=== PATIENT | female | born 1940 | race Caucasian/White ===

== ENCOUNTER → 2017-02-04 | Outpatient (CLI) | payer MEDICARE, OTHER ==
--- NOTE | 2017-02-04 12:52 | REPMRS ---
Patient History The patient states she had a clinical breast exam in Patient is postmenopausal. No known family history of cancer. Took estrogen for 3 years. Digital Woman Screen Mammo: February 04, 2017 - Exam #: [id number] Bilateral CC and MLO view(s) were taken. Technologist: Flor Cortez, Technologist Prior study comparison: January 31, 2011, bilateral bilat screen digital mammo performed at [facility]. FINDINGS: There are scattered fibroglandular densities. The patient states that there are no palpable abnormalities or other breast complaints. There has been no change in the appearance of the mammogram from the prior studies. There is moderately dense fibroglandular tissue which is fairly symmetric. There is no interval development of dominant mass, areas of architectural distortion, or clustered microcalcification typical of malignancy. No significant changes when compared with prior studies. ASSESSMENT: BI-RADS/ACR category 1 mammogram. Negative. Recommendation Routine screening mammogram in 1 year (for women over age 40). This mammogram was interpreted with the aid of an FDA-approved computer-aided dectection system. A. Negative x-ray reports should not delay biopsy if a dominant or clinically suspicious mass is present. B. Not all cancers are identified by mammography. C. Adenosis and dense breast may obscure an underlying neoplasm. Electronically Signed By: Sky Decker M.D. 02/04/17 [id number]
--- NOTE | 2017-02-06 09:29 | DEXA ---
AP SPINE L1 - L4 1.199 0.0 1.9 LT FEMUR TOTAL 0.847 -1.3 0.7 RT FEMUR TOTAL 0.853 -1.2 0.7 TOTAL BODY TOTAL OTHER % COMMENTS: Normal bone densitometry of the spine. There is low bone density of the hips. The density of the spine has decreased 2.4% since the initial exam on 04/2002. The spine density has increased 0.6% since the most recent exam on 02/2015. The density of the left hip has decreased 7.6% since the initial exam on 2001. The density of the left hip has increased 2.2% since the most recent exam on 2014. The density of the right hip has decreased 8.4% since the initial exam on 2001. The density of the right hip has decreased 1.2% since the most recent exam on . FOLLOW-UP: Recommendation for the next bone density exam: 2 years. ELISE
== END ==
LOC: M WHC 10:36
PROVIDERS: ATTEND Nurse Practitioner Women's Health
DX: Z01.419 Encounter for gynecological examination (general) (routine) without abnormal findings (principal); Z12.31 Encounter for screening mammogram for malignant neoplasm of breast; M81.0 Age-related osteoporosis without current pathological fracture; Z78.0 Asymptomatic menopausal state; Z12.12 Encounter for screening for malignant neoplasm of rectum; Z92.23 Personal history of estrogen therapy
CPT/HCPCS: 77080; 82270; G0101; G0202

== ENCOUNTER 2017-05-07 06:02 | Day surgery (SDC) | payer MEDICARE, OTHER ==
[2017-05-07] MEDS: PROPARACAINE 0.5% OPHTH SOL 15ML OS (06:40)
[2017-05-07] MEDS: OFLOXACIN 0.3 % (OCUFLOX) OPTH SOL 5ML OS (06:41)
[2017-05-07] MEDS: PHENYLEPHRINE 2.5% OPHTH SOL 2ML OS (06:41)
[2017-05-07] MEDS: TROPICAMIDE 1% OPHTH SOLN 2ML OS (06:41)
[2017-05-07] MEDS ORDERED: MIDAZOLAM INJ 2 MG/2 ML VIAL (J2250) As Ordered (07:00)
[2017-05-07] MEDS: POVIDONE-IODINE 5% OPHTH PREP SOL 30ML As Ordered (07:33)
[2017-05-07] MEDS: BALANCED SALT IRRIGATION SOLUTION 500ML BAG (FOR OR EYE MACHINE) As Ordered (07:40)
[2017-05-07] MEDS: DUOVISC (0.50ML VISCOAT/0.55ML PROVISC) OPHTH KIT As Ordered (07:41)
[2017-05-07] MEDS: ACETYLCHOLINE OPHTH SOLN 1% 2ML (MIOCHOL-E) As Ordered (07:41)
[2017-05-07] MEDS: CEFUROXIME 1MG/0.1ML INTRACAMERAL INJ As Ordered (07:41)
[2017-05-07] MEDS: LIDOCAINE 0.75%/EPINEPHRINE 0.025% IN BSS 1ML SYR INTRACAMERAL (OR ONLY) As Ordered (07:41)
[2017-05-07] MEDS: PROPARACAINE 0.5% OPHTH SOL 15ML As Ordered (07:42)
== END 2017-05-07 08:45 | disposition home or self-care (01) ==
LOC: M SDC 06:02
DX: H25.12 Age-related nuclear cataract, left eye (principal); H52.222 Regular astigmatism, left eye; M19.90 Unspecified osteoarthritis, unspecified site; M81.0 Age-related osteoporosis without current pathological fracture; Z91.048 Other nonmedicinal substance allergy status; Z88.6 Allergy status to analgesic agent; Z79.899 Other long term (current) drug therapy
CPT/HCPCS: 66984

== ENCOUNTER 2017-05-28 06:15 | Day surgery (SDC) | payer MEDICARE, OTHER ==
[2017-05-28] MEDS: BALANCED SALT IRRIGATION SOLUTION 500ML BAG (FOR OR EYE MACHINE) As Ordered (06:37)
[2017-05-28] MEDS: OFLOXACIN 0.3 % (OCUFLOX) OPTH SOL 5ML OD (06:44)
[2017-05-28] MEDS: PHENYLEPHRINE 2.5% OPHTH SOL 2ML OD (06:44)
[2017-05-28] MEDS: PROPARACAINE 0.5% OPHTH SOL 15ML OD ×2 (06:44→07:35)
[2017-05-28] MEDS: TROPICAMIDE 1% OPHTH SOLN 2ML OD (06:44)
[2017-05-28] MEDS ORDERED: TROPICAMIDE 1% OPHTH SOLN 2ML OD (07:00)
[2017-05-28] MEDS ORDERED: PHENYLEPHRINE 2.5% OPHTH SOL 2ML OD (07:00)
[2017-05-28] MEDS ORDERED: OFLOXACIN 0.3 % (OCUFLOX) OPTH SOL 5ML OD (07:00)
[2017-05-28] MEDS ORDERED: MIDAZOLAM INJ 2 MG/2 ML VIAL (J2250) As Ordered (07:09)
[2017-05-28] MEDS ORDERED: fentaNYL 100 MCG/2 ML INJECTION (J3010) As Ordered (07:09)
[2017-05-28] MEDS: DUOVISC (0.50ML VISCOAT/0.55ML PROVISC) OPHTH KIT As Ordered (07:35)
[2017-05-28] MEDS: CEFUROXIME 1MG/0.1ML INTRACAMERAL INJ As Ordered (07:35)
[2017-05-28] MEDS: ACETYLCHOLINE OPHTH SOLN 1% 2ML (MIOCHOL-E) As Ordered (07:35)
[2017-05-28] MEDS: POVIDONE-IODINE 5% OPHTH PREP SOL 30ML As Ordered (07:35)
[2017-05-28] MEDS: LIDOCAINE 0.75%/EPINEPHRINE 0.025% IN BSS 1ML SYR INTRACAMERAL (OR ONLY) As Ordered (07:35)
== END 2017-05-28 08:50 | disposition home or self-care (01) ==
LOC: M SDC 06:15
DX: H25.11 Age-related nuclear cataract, right eye (principal); M81.0 Age-related osteoporosis without current pathological fracture
CPT/HCPCS: 66984

== ENCOUNTER → 2018-03-02 | Outpatient (CLI) | payer MEDICARE, OTHER | LOC: M WHC 14:36 | DX: Z12.31 Encounter for screening mammogram for malignant neoplasm of breast (principal); Z01.419 Encounter for gynecological examination (general) (routine) without abnormal findings (principal); Z92.29 Personal history of other drug therapy | CPT/HCPCS: 77067 ==

== ENCOUNTER 2018-07-12 12:00 | Emergency (ER) | payer MEDICARE, OTHER ==
[~2018-07-12] VITALS: Ht 147.3 cm; Wt 51.8 kg
[~2018-07-12 12:00] MED LIST: MULT1TAB18 PO; OMEG100011 PO; VIAC8.5C PO; VITA500C24 PO
--- NOTE | 2018-07-12 14:06 | REP ---
RIGHT KNEE, COMPLETE: 07/12/2018. Clinical history: Right knee pain. States she felt a "pop" in her knee. Findings: No prior study. Five views are provided. Appears to be a suprapatellar effusion on the lateral view. [place] view shows no patellar subluxation, dislocation or fracture. There is no narrowing of the medial or lateral compartments. No visible or displaced fracture, loose body or osteochondral defect. Proximal tibial fibular articulation normal. Impression: 1. Findings suggest a small suprapatellar effusion but no visible or displaced fracture, avulsion, loose body, osteochondral defect or other acute finding. Electronically Signed by Shay Bain MD 07/12/2018 07:54 P
[2018-07-12 14:11] VITALS: BP 128/69
== END 2018-07-12 14:27 | disposition home or self-care (01) ==
LOC: M ED 12:00
DX: S83.8X1A Sprain of other specified parts of right knee, initial encounter (principal); X50.9XXA Other and unspecified overexertion or strenuous movements or postures, initial encounter; Y92.009 Unspecified place in unspecified non-institutional (private) residence as the place of occurrence of the external cause; M25.461 Effusion, right knee; Z88.8 Allergy status to other drugs, medicaments and biological substances

== ENCOUNTER → 2018-10-03 | Outpatient (CLI) | payer MEDICARE, OTHER ==
--- NOTE | 2018-10-03 09:44 | REP ---
Clinical: Strain Technique: neutral and frog-lateral views of the right hip. Findings: Generalized age-related degenerative changes. Findings include sclerosis to the acetabular roof with mild joint space narrowing. No acute fracture or dislocation. Impression: Generalized age related changes. Electronically Signed by Gilles Samayoa MD 10/03/2018 09:35 A
--- NOTE | 2018-10-03 09:46 | REP ---
Clinical: Strain. Technique: AP, lateral, bilateral oblique and sunrise views of the right knee. Findings: Generalized age related changes. No acute fracture or dislocation. No effusion. Impression: Essentially age appropriate examination. Electronically Signed by Gilles Samayoa MD 10/03/2018 09:37 A
== END ==
LOC: M WUC 09:04
PROVIDERS: ATTEND Physician Assistant
DX: S76.011A Strain of muscle, fascia and tendon of right hip, initial encounter (principal); S86.011A Strain of right Achilles tendon, initial encounter; M16.11 Unilateral primary osteoarthritis, right hip; X58.XXXA Exposure to other specified factors, initial encounter; Y92.9 Unspecified place or not applicable

== ENCOUNTER → 2019-03-02 | Outpatient (CLI) | payer MEDICARE, OTHER ==
[~2019-03-02] MED LIST changes: -VIAC8.5C PO; +VIACTIV 500-5001 CHW PO
--- NOTE | 2019-03-02 11:30 | REPMRS ---
Patient History The patient states she has not had a clinical breast exam in over a year. No known family history of cancer. Took estrogen for 3 years. 3D TOMOSYNTHESIS WAS PERFORMED. [facility]%. Digital Woman Screen Mammo: March 02, 2019 - Exam #: [id number] Bilateral CC and MLO view(s) were taken. Technologist: Yary Mckeon, Technologist Prior study comparison: March 02, 2018, bilateral digital woman screen mammo performed at [facility]. February 04, 2017, digital woman screen mammo performed at [facility]. FINDINGS: The breast tissue is heterogeneously dense. This may lower the sensitivity of mammography. There has been no change in the appearance of the mammogram from the prior studies. There is a moderate amount of residual fibroglandular tissue which is fairly symmetric. There is no interval development of dominant mass, areas of architectural distortion, or clustered microcalcification typical of malignancy. Assessment: BI-RADS/ACR category 1 mammogram. Negative Mammogram. Recommendation Routine screening mammogram in 1 year (for women over age 40). This mammogram was interpreted with the aid of an FDA-approved computer-aided dectection system. Electronically Signed By: Sky Boyd MD 03/02/19 [id number]
== END ==
LOC: M WHC 10:43
PROVIDERS: ATTEND Nurse Practitioner Women's Health
DX: Z12.31 Encounter for screening mammogram for malignant neoplasm of breast (principal)

== ENCOUNTER → 2019-04-06 | Outpatient (CLI) | payer MEDICARE, OTHER ==
--- NOTE | 2019-04-07 15:43 | DEXA ---
AP SPINE L1 - L4 1.157 -0.3 1.6 LT FEMUR TOTAL 0.810 -1.6 0.5 LT NECK 0.787 -1.8 0.4 RT FEMUR TOTAL 0.783 -1.8 0.3 RT NECK 0.716 -2.3 -0.1 TOTAL BODY TOTAL OTHER COMMENTS: Normal bone densitometry of the spine. There is low bone density of the hips. The decreased density of the spine does represent a significant change. The decreased density of the left hip does represent a significant change. The decreased density of the right hip does represent a significant change. The density of the spine has decreased 5.9% since the initial exam on 04/26/2002. The spine density has decreased 3.5% since the most recent exam on 02/04/2017. The density of the left hip has decreased 11.7% since the initial exam on 04/26/2002. The density of the left hip has decreased 4.4% since the most recent exam on 02/04/2017. The density of the right hip has decreased 18.9% since the initial exam on 04/26/2002. The density of the right hip has decreased 8.2% since the most recent exam on 02/04/2017. FOLLOW-UP: Recommendation for the next bone density exam: 2 years. ELISE
== END ==
LOC: M WHC 10:44
PROVIDERS: ATTEND Nurse Practitioner Women's Health
DX: M81.0 Age-related osteoporosis without current pathological fracture (principal)

== ENCOUNTER → 2019-11-08 | Outpatient (CLI) | payer MEDICARE, OTHER ==
[2019-11-08 17:42] LABS: BLOOD UREA NITROGEN 18 MG/DL (7-18); GLOMERULAR FILTRATION RATE > 60.0 (>32); TOTAL PROTEIN 7.5 GM/DL (6.4-8.2)
[2019-11-10 13:54] LABS: ALBUMIN 4.38 GM/DL (3.29-5.55); ALBUMIN % 58.4 % (55.8-66.1); ALPHA-1-GLOBULIN % 3.9 % (2.9-4.9); ALPHA-1-GLOBULINS 0.29 GM/DL (0.17-0.41); ALPHA-2-GLOBULINS % 10.2 % (7.1-11.8); BETA-1-GLOBULINS % 5.9 % (4.7-7.2); BETA-2-GLOBULINS % 5.1 % (3.2-6.5); GAMMA GLOBULIN % 16.5 % (11.1-18.8)
[2019-11-10 13:55] LABS: ALPHA-2-GLOBULINS 0.77 GM/DL (0.42-0.99); BETA-1-GLOBULINS 0.44 GM/DL (0.28-0.60); BETA-2-GLOBULINS 0.38 GM/DL (0.19-0.55); GAMMA GLOBULINS 1.24 GM/DL (0.65-1.58)
[2019-11-13 17:07] LABS: VITAMIN B1 LEVEL WHOLE BLOOD 141.9 nmol/L (66.5-200.0); VITAMIN B6,PYRIDOXAL PHOSPHATE 22.1 ug/L (2.0-32.8); VITAMIN E(ALPHA TOCOPHEROL) 14.8 mg/L (9.0-29.0); VITAMIN E(GAMMA TOCOPHEROL) 1.4 mg/L (0.5-4.9)
== END ==
LOC: M WUC 11:00
PROVIDERS: ATTEND Psychiatry & Neurology Neurology
DX: G31.84 Mild cognitive impairment of uncertain or unknown etiology (principal)

== ENCOUNTER → 2022-10-15 | Outpatient (CLI) | payer MEDICARE, BC ==
[~2022-10-15] MED LIST changes: +DONE5TAB82 PO; +HYDR-643 PO; +LEVO25TA5 PO; +MULT-90 PO; +OMEG10002 PO; +PRES10CA2 PO; +VITA100T91 PO
[2022-10-15 16:20] LABS: CA19-9 TUMOR MARKER,CARBOHYDRA 6.2 U/ML (<35.0)
== END ==
LOC: M LAB 15:01
DX: K86.2 Cyst of pancreas (principal)

== ENCOUNTER → 2022-11-27 | Day surgery (SDC) | payer MEDICARE, BC ==
[~2022-11-27] VITALS: Ht 149.9 cm; Wt 45.0 kg
[~2022-11-27] MED LIST changes: +LIDOCAINE 2% 100MG/5ML SDV (FOR ANES.) As Ordered ONE; +NS 1,000 ML IV ONE; +ePHEDrine SULFATE 25 MG/5 ML(5MG/ML) SYRINGE As Ordered ONE; +propofoL 200 MG/20 ML VIAL As Ordered ONE
[2022-11-27 10:52] VITALS: TEMP 96.9
[2022-11-27 11:29] VITALS: BP 94/53; O2SAT 97
== END | disposition home or self-care (01) ==
LOC: M OPP 09:34
PROVIDERS: ATTEND Surgery
DX: Z86.010 Personal history of colon polyps (principal); K63.5 Polyp of colon; K57.30 Diverticulosis of large intestine without perforation or abscess without bleeding; R19.4 Change in bowel habit; Z98.890 Other specified postprocedural states; Z79.899 Other long term (current) drug therapy; Z91.040 Latex allergy status

== ENCOUNTER → 2022-12-22 | Outpatient (CLI) | payer MEDICARE, BC ==
[~2022-12-22] MED LIST changes: -LIDOCAINE 2% 100MG/5ML SDV (FOR ANES.) As Ordered ONE; -NS 1,000 ML IV ONE; -ePHEDrine SULFATE 25 MG/5 ML(5MG/ML) SYRINGE As Ordered ONE; -propofoL 200 MG/20 ML VIAL As Ordered ONE
[2022-12-22 17:02] LABS: LIPASE 81 U/L (12-53)
[2022-12-22 17:03] LABS: AMYLASE 173 U/L (30-118)
[2022-12-25 00:07] LABS: ANTINUCLEAR ANTIBODIES DIRECT Negative (Negative)
== END ==
LOC: M WUC 14:30
PROVIDERS: ATTEND Internal Medicine Gastroenterology
DX: K86.1 Other chronic pancreatitis (principal)

== ENCOUNTER → 2023-01-19 | Outpatient (CLI) | payer MEDICARE, BC ==
[2023-01-19 19:21] LABS: HEMATOCRIT 40.4 % (36.0-47.0); HEMOGLOBIN 12.7 g/dl (12.0-15.5); MEAN CORPUSCULAR HEMOGLOBIN 30.2 pg (27.0-33.0); MEAN CORPUSCULAR HGB CONC 31.4 g/dl (32.0-36.5); PLATELET COUNT, AUTOMATED 275 10^3/uL (150-450); RED BLOOD COUNT 4.21 10^6/uL (4.00-5.40); WHITE BLOOD COUNT 5.9 10^3/uL (4.0-10.0)
[2023-01-19 19:54] LABS: ALBUMIN 3.7 G/DL (3.2-5.2); ALKALINE PHOSPHATASE 62 U/L (46-116); ALT/SGPT 23 U/L (7.0-40); AST/SGOT 23 U/L (<34); BILIRUBIN,TOTAL 0.4 MG/DL (0.3-1.2); BLOOD UREA NITROGEN 22 MG/DL (9-23); CALCIUM LEVEL 9.9 MG/DL (8.3-10.6); CARBON DIOXIDE LEVEL 34 MMOL/L (20-31); CHLORIDE LEVEL 102 MMOL/L (98-107); CHOLESTEROL LEVEL 191 MG/DL (<200); CHOLESTEROL RISK RATIO 2.39 (<5); CREATININE FOR GFR 0.77 MG/DL (0.55-1.30); GLOMERULAR FILTRATION RATE > 60.0 (>32); GLUCOSE, FASTING 90 MG/DL (74-106); HDL CHOLESTEROL 79.7 MG/DL (>40); LDL CHOLESTEROL 89.9 MG/DL (<100); NON-HDL-C 111.3 MG/DL; POTASSIUM SERUM 4.1 MMOL/L (3.5-5.1); SODIUM LEVEL 140 MMOL/L (136-145); THYROID STIMULATING HORMONE 2.376 uIU/ML (0.55-4.78); TOTAL PROTEIN 6.9 G/DL (5.7-8.2); TRIGLYCERIDES LEVEL 107 MG/DL (<150)
[2023-01-19 20:26] LABS: APPEARANCE, URINE CLEAR (CLEAR); BACTERIA, URINE AUTO NEGATIVE (NEGATIVE); BILIRUBIN, URINE AUTO NEGATIVE (NEGATIVE); BLOOD, URINE BLOOD NEGATIVE (NEGATIVE); COLOR, URINE YELLOW (YELLOW); GLUCOSE, URINE (UA) AUTO NEGATIVE (NEGATIVE); KETONE, URINE AUTO NEGATIVE (NEGATIVE); LEUKOCYTE ESTERASE, URINE AUTO NEGATIVE (NEGATIVE); NITRITE, URINE AUTO NEGATIVE (NEGATIVE); PROTEIN, URINE AUTO NEGATIVE (NEGATIVE); RBC, URINE AUTO 0 /HPF (0-3); SPECIFIC GRAVITY URINE AUTO 1.005 (1.002-1.035); SQUAMOUS EPITHELIAL CELL UR AU 0 /HPF (0-6); UROBILINOGEN, URINE AUTO 0.2 mg/dL (0.0-2.0); WBC, URINE AUTO 0 /HPF (0-3)
== END ==
LOC: M WUC 12:13
PROVIDERS: ATTEND Physician Assistant
DX: E03.9 Hypothyroidism, unspecified (principal); E78.00 Pure hypercholesterolemia, unspecified; M81.0 Age-related osteoporosis without current pathological fracture; M19.90 Unspecified osteoarthritis, unspecified site

== ENCOUNTER → 2023-06-17 | Outpatient (CLI) | payer MEDICARE, BC | LOC: M WUC 11:10 | PROVIDERS: ATTEND Physician Assistant | DX: K86.1 Other chronic pancreatitis (principal); K86.2 Cyst of pancreas; C18.9 Malignant neoplasm of colon, unspecified; R19.7 Diarrhea, unspecified; R19.8 Other specified symptoms and signs involving the digestive system and abdomen ==

== ENCOUNTER → 2023-12-03 | Outpatient (CLI) | payer MEDICARE, BC ==
[~2023-12-03] MED LIST changes: +PROHANCE 279.3MG/ML 5ML VIAL ONE
== END ==
LOC: M PLAIMG 12:18
PROVIDERS: ATTEND Internal Medicine Gastroenterology
DX: K86.1 Other chronic pancreatitis (principal); K86.2 Cyst of pancreas; C18.9 Malignant neoplasm of colon, unspecified
CPT/HCPCS: 74183; A9576

== ENCOUNTER 2024-03-03 07:48 | Day surgery (SDC) | payer MEDICARE, BC ==
[~2024-03-03] VITALS: Ht 147.3 cm; Wt 43.2 kg
[~2024-03-03 07:48] MED LIST changes: +ALIG4CAP PO; +DONE10TA90 PO; +NS 250 ML IV ONE; -PROHANCE 279.3MG/ML 5ML VIAL ONE; +REST0.05 OU; +VIAC1CHW PO; +ZENP1CAP PO
[2024-03-03] MEDS ORDERED: propofoL 200 MG/20 ML VIAL As Ordered ONE (08:29)
[2024-03-03] MEDS ORDERED: LIDOCAINE 2% 100MG/5ML SDV (FOR ANES.) As Ordered ONE (08:29)
[2024-03-03] MEDS ORDERED: dexmedeTOMIDine (4MCG/ML)200MCG/50ML BTL (PRECEDEX) As Ordered ONE (08:29)
[2024-03-03 09:20] VITALS: BP 113/62; O2SAT 98
== END 2024-03-03 09:19 | disposition home or self-care (01) ==
LOC: M OPP 07:48
PROVIDERS: ATTEND Surgery
DX: Z12.11 Encounter for screening for malignant neoplasm of colon (principal); K57.30 Diverticulosis of large intestine without perforation or abscess without bleeding; Z85.048 Personal history of other malignant neoplasm of rectum, rectosigmoid junction, and anus; E03.9 Hypothyroidism, unspecified; Z79.890 Hormone replacement therapy; Z79.899 Other long term (current) drug therapy; F03.90 Unspecified dementia, unspecified severity, without behavioral disturbance, psychotic disturbance, mood disturbance, and anxiety

== ENCOUNTER → 2024-06-15 | Outpatient (CLI) | payer MEDICARE, BC ==
[~2024-06-15] MED LIST changes: -ALIG4CAP PO; +ALIG4CAP3 PO; -NS 250 ML IV ONE
[2024-06-15 16:45] LABS: LIPASE 97 U/L (12-53)
[2024-06-15 16:47] LABS: AMYLASE 145 U/L (30-118)
[2024-06-15 16:49] LABS: CARCINOEMBRYONIC ANTIGEN < 2.0 NG/ML (<2.5)
== END ==
LOC: M WUC 11:04
PROVIDERS: ATTEND Physician Assistant
DX: C18.9 Malignant neoplasm of colon, unspecified (principal); K86.1 Other chronic pancreatitis; K86.2 Cyst of pancreas; M54.50 Low back pain, unspecified

== ENCOUNTER → 2025-01-11 | Outpatient (CLI) | payer MEDICARE, BC ==
[~2025-01-11] MED LIST changes: +PROHANCE 279.3MG/ML 5ML VIAL As Ordered ONE
== END ==
LOC: M RAD 12:22
PROVIDERS: ATTEND Internal Medicine Gastroenterology
DX: K86.2 Cyst of pancreas (principal); K86.1 Other chronic pancreatitis; C18.9 Malignant neoplasm of colon, unspecified
CPT/HCPCS: 74183; A9576